=== PATIENT | female | born 1990 | race African-American/Black ===

== ENCOUNTER 2025-07-18 04:24 | Emergency (ER) | payer MEDICAID ==
[~2025-07-18] VITALS: Ht 165.1 cm; Wt 63.0 kg
[2025-07-18] MEDS: DEXAMETHASONE 10 MG/ML VIAL PO ONE (05:02)
[2025-07-18] MEDS: IPRATROPIUM/ALBUTEROL 0.5-3(2.5)MG/3ML NEB HHN ONE (05:10)
[2025-07-18 05:11] VITALS: PULSE 85; RESP 16; O2SAT 100
[2025-07-18] MEDS ORDERED: ALBU18HF2 IH (05:35)
[2025-07-18] MEDS ORDERED: PRED10TA23 MT (05:35)
[2025-07-18 05:49] VITALS: BP 108/70; PULSE 83; RESP 18; TEMP 36.6; O2SAT 98
== END 2025-07-18 05:51 | disposition home or self-care (01) ==
LOC: ER 04:24
DX: J45.901 Unspecified asthma with (acute) exacerbation (principal)
CPT/HCPCS: 71045; 94640; 99283; J1100; Z7610 ×2; 94070; 98960